=== PATIENT | male | born 1975 | race Caucasian/White ===

== ENCOUNTER 2024-10-18 00:47 | Day surgery (SDC) | payer OTHER, SELFPAY ==
[2024-10-11 10:52] VITALS: BMI 34.4
--- OUTSIDE RECORDS SUMMARY | 2024-10-18 00:51 | XMS_ITS | Clinical Summary ---
Author Organization [facility] Address [address] [place] [address] Care Team Providers Care Continuous Process Coffee Roaster Name Role Phone No, Physician Primary Care Provider [phone] Allergies No known active allergies Medications traMADol (ULTRAM) 50 mg tablet Take by mouth every 6 (six) hours as needed. 0 7 Active sulfamethoxazol e-trimethoprim (BACTRIM,SEPTRA ) 800-160 mg per tablet TAKE 1 TABLET BY MOUTH TWICE A DAY UNTIL FINISHED TAKE WITH LOTS OF FLUIDS 0 7 Active naproxen (NAPROSYN) 500 mg tablet Take 1 tablet (500 mg total) by mouth 2 (two) times a day with meals. 30 tablet 8 Active Additional Information Patient not taking.Reported on 03/29/2020 HYDROcodone-yael taminophen (NORCO) 5-325 mg per tabletIndicatio ns:Pain Take 1 tablet by mouth every 6 (six) hours as needed for pain. 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): The procedure along with risks and benefits were explained to the patient to which she agrees for an excision of epidermoid cyst Surgical History Surgery Date Site/Laterality Comments TONSILLECTOMY Medical History Medical History Date Comments No pertinent past medical history Family History Medical History Relation Name Comments Diabetes Brother Cancer Father Diabetes Father Prostate cancer Father Relation Name Status Comments Brother Alive Father Alive Social History Tobacco Use Types Packs/Day Years Used Date Smoking Tobacco: Never Smokeless Tobacco: Current Alcohol Use Standard Drinks/Week Comments Yes 3 (1 standard drink = 0.6 oz pur e alcohol) occassionally Sex and Gender Information Value Date Recorded Sex Assigned at Not on file Legal Sex Male 4:14 AM STUDENT 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 DEAN Gender Identity Not on file Sexual Orientation Not on file Obstetrics History Last Filed Vital Signs Vital Sign Reading Time Taken Comments Blood Pressure 160/66 04/26/2020 1:39 PM CDT Pulse 82 04/26/2020 1:39 PM CDT Temperature 36.3 C (97.3 F) 04/26/2020 1:39 PM CDT Respiratory Rate 18 04/26/2020 1:39 PM CDT Oxygen Saturation 98% 04/26/2020 1:39 PM CDT Inhaled Oxygen Concentration - - Weight 108.9 kg (240 lb) 03/29/2020 1:55 PM CDT Height 180.3 cm (5' 11 ) 03/29/2020 1:55 PM CDT Body Mass Index 33.47 03/29/2020 1:55 PM CDT Plan of Treatment Not on file Insurance [facility] [place] [address] [employer] Care Teams Continuous Process Coffee Roaster Relationship Specialty Start Date End Date No, Physician PCP - General 06/18/17
--- OUTSIDE RECORDS SUMMARY | 2024-10-18 00:51 | XMS_ITS | Continuity of Care Document ---
Author Organization [facility] Address [address] [place] [address] Phone Care Team Providers Care Gem Cutter Name Role Phone Bhavna Soria Unavailable Unavailable Advance Directives Directive Yes / No Effective Date File Name No Information Encounters Encounter Description Practice Location Reason(s) For Visit Diagnoses Date Provider Providers Copied on [facility]counter [facility] [address], [place], [place], [id number], [place] tel:[phone] [facility] No Information Dec-2 2-200 5 Estella Huggins. [address] [facility] , [address], [place], [address], [place]. tel:[phone] Family History Family Member Type Diagnosis Age At Onset No Information Payers Payer name Insurance type Covered democrat ID Authoriza tion(s) No Information Social History Type Description Quantity Date Captured Comments Sex Female Smoking Status No Information Chief Complaint And Reason For Visit No Information Reason For Referral Reason For Referral No Information History Of Present Illness Encounter Date Complaint History Of Prese nt Illness No Information Functional Status Date Functional Assessmen t No Information Instructions Date Instruction Additional Infor mation No Information Assessments Type Assessment Date No Information Patient Care Teams Name Effective Dates (start - stop) Status Members No Information
--- OUTSIDE RECORDS SUMMARY | 2024-10-18 00:51 | XMS_ITS | Referral Summary ---
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): The procedure along with risks and benefits were explained to the patient to which she agrees for an excision of epidermoid cyst Social History Tobacco Use Types Packs/Day Years Used Date Smoking Tobacco: Never Smokeless Tobacco: Current Alcohol Use Standard Drinks/Week Comments Yes 3 (1 standard drink = 0.6 oz pur e alcohol) occassionally Sex and Gender Information Value Date Recorded Sex Assigned at Not on file Legal Sex Male 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
--- OUTSIDE RECORDS SUMMARY | 2024-10-18 00:51 | XMS_ITS | Clinical Summary ---
Author Organization [facility] Address [address] [place] [address] Phone Care Team Providers Care Scrap Metal Collector Name Role Phone Provider, None Primary Care Provider Unavailabl e Allergies No known active allergies Immunizations Immunization Administration Dates Next Due TDAP Vaccine 08/06/2023 Social History Tobacco Use Types Packs/Day Years Used Date Smoking Tobacco: Never Assessed Sex and Gender Information Value Date Recorded Sex Assigned at Not on file Legal Sex Male 9:12 PM CDT Gender Identity Not on file Sexual Orientation Not on file Last Filed Vital Signs Vital Sign Reading Time Taken Comments Blood Pressure 174/118 08/06/2023 6:30 PM SIDE PULLER Pulse 94 08/06/2023 6:30 PM SIDE PULLER Temperature 36.1 C (97 F) 08/06/2023 5:42 PM SIDE PULLER Respiratory Rate 20 08/06/2023 5:42 PM SIDE PULLER Oxygen Saturation 90% 08/06/2023 6:30 PM SIDE PULLER Inhaled Oxygen Concentration - - Weight 106.6 kg (235 lb) 08/06/2023 5:42 PM SIDE PULLER Height 179.1 cm (5' 10.5 ) 08/06/2023 5:42 PM CS T Body Mass Index 33.24 08/06/2023 5:42 PM SIDE PULLER Plan of Treatment Not on file Insurance [facility] Care Teams Scrap Metal Collector Relationship Specialty Start Date End Date Provider, None [place] PCP - General 08/06/23
[2024-10-18 11:58] VITALS: BP 154/100; PULSE 68; RESP 20; TEMP 36.2; O2SAT 99
[2024-10-18] MEDS: LACTATED RINGERS 1,000 ML 150 ML IV CONT (12:14)
--- NOTE | 2024-10-18 12:20 | P.PNAN_ITS ---
Anes - Initial Pre Proc Eval Procedure: Operation Date: 10/18/24 13:00 Proposed Procedures p Screening Colonoscopy - Roosevelt King MD Date/Time: 10/18/24 12:20 Surgeon: Roosevelt King MD Pre Op Diagnosis: screening colon Patient Data Age: 49 Gender: M Height: 1.78 m Weight: 103.8 kg Last Vital Signs Temp 97.1 F L 10/18/24 11:58 Pulse 68 10/18/24 11:58 Resp 20 10/18/24 11:58 BP 154/100 H 10/18/24 11:58 Pulse Ox 99 10/18/24 11:58 O2 Del Method Room Air 10/18/24 11:58 Allergies Allergy/AdvReac Type Severity Reaction Status Date / Time No Known Allergies Allergy Verified 10/18/24 11:57 Home Medications ?Medication ?Instructions ?Recorded ?Confirmed ?Type mupirocin 2 % topical ointment 1 applic topical BID 10 days #22 06/24/24 10/18/24 Rx grams Patient hx anesthesia problems: none Family hx anesthesia problems: none Results Review: All pre-operative results and documents have been reviewed as part of the pre- operative evaluation. [facility] Past Medical History Medical History Overweight or obesity BMI 34.0-34.9,adult Migraine without aura Palpitations Social History Social History Smoking status: Never smoker Smokeless tobacco user: chewing tobacco Substance use type: does not use Living arrangements: with family Spiritual care concerns: No Anes - Eval Final PreProcedure Day of Procedure 10/18/24 12:20 Patient weight: overweight Heart: regular rate and rhythm Lungs: clear to auscultation Airway: Mallampati scale class II Last oral intake: >/= 8 hours ASA classification: II Emergent: no Anesthetic plan: proceed Anesthesia type and monitoring: general GIVS and standard monitoring Results Review: All pre-operative results and documents have been reviewed as part of the pre- operative evaluation. Informed Consent: The patient's anesthetic plan and its attendant risks and benefits were discussed with the patient/family/POA. Questions were solicited and answers provided to the satisfaction of the patient/family/POA.
[2024-10-18 12:21] VITALS: BP 161/96
--- NOTE | 2024-10-18 12:28 | PM.IMHP ---
H&P: HPI History of Present Illness Date/Time: 10/18/24 12:28 Chief Complaint: Screening colonoscopy Narrative: This is the patient's first colonoscopy. There are no GI symptoms and there is no family history of colorectal cancer. Review of Systems Review of Systems: All systems reviewed & are unremarkable except as noted in HPI and below PMFSH Past Medical History Medical History Overweight or obesity BMI 34.0-34.9,adult Migraine without aura Palpitations Social History Social History Smoking status: Never smoker Smokeless tobacco user: chewing tobacco Substance use type: does not use Living arrangements: with family Spiritual care concerns: No Meds Home Medications and Allergies Home Medications ?Medication ?Instructions ?Recorded ?Confirmed ?Type mupirocin 2 % topical ointment 1 applic topical BID 10 days #22 06/24/24 10/18/24 Rx grams Allergies Allergy/AdvReac Type Severity Reaction Status Date / Time No Known Allergies Allergy Verified 10/18/24 11:57 Vital Signs Vital Signs - 24 hr 10/18/24 11:58 10/18/24 12:21 Temperature 97.1 F L Pulse Rate 68 Respiratory Rate 20 Blood Pressure 154/100 H 161/96 H Pulse Oximetry 99 Oxygen Delivery Room Air Exam Const: General: cooperative and healthy appearing Resp: Effort & Inspection: normal respiratory effort and able to speak in complete sentences Auscultation: clear to auscultation bilaterally Cardio: Rate: regular rate Rhythm: regular rhythm GI: Inspection: normal to inspection GI Palp: No No hepatosplenomegaly present Auscultation: normal bowel sounds Rectal Exam: deferred Skin: General skin exam: normal color Psych: Appearance: grossly normal Mental Status: mental status grossly normal Assessment and Plan Assessment and plan (1) Encounter for screening colonoscopy: Code(s): Z12.11 - Encounter for screening for malignant neoplasm of colon Status: Acute Assessment and Plan: The patient is deemed a good candidate for the procedure. Consent signed. Will proceed.
[2024-10-18 12:48] VITALS: BP 137/94; PULSE 79; RESP 20; O2SAT 97
[2024-10-18 12:58] VITALS: BP 150/101; PULSE 82; RESP 21; O2SAT 99
[2024-10-18 13:02] VITALS: BP 153/108
[2024-10-18 13:08] VITALS: BP 159/101; PULSE 80; RESP 22; O2SAT 100
--- NOTE | 2024-10-18 13:14 | SUR.PHASEII ---
Discussed hypertension with Dr. Osorio. Per Dr. Osorio, adrianaay to discharge patient. Patient educated on the importance of following up with PCP in regards to blood pressures. Patient and family verbalized understanding.
== END 2024-10-18 13:24 | disposition home or self-care (01) ==
PROVIDERS: PCP Nurse Practitioner Family; Referring Provider Nurse Practitioner Family; Visit Provider Internal Medicine Gastroenterology
PROC: 0DJD8ZZ Inspection of Lower Intestinal Tract, Via Natural or Artificial Opening Endoscopic (ICD-10-PCS; CPT 45378; principal; 2024-10-18 13:00)
DX: Z12.11 Encounter for screening for malignant neoplasm of colon (principal); D12.5 Benign neoplasm of sigmoid colon; K62.1 Rectal polyp; K57.30 Diverticulosis of large intestine without perforation or abscess without bleeding; R00.2 Palpitations; F17.220 Nicotine dependence, chewing tobacco, uncomplicated
CPT/HCPCS: 45385; 88305; J2003; J2704; J7120

== ENCOUNTER 2025-07-01 10:22 | Outpatient (CLI) | payer OTHER, SELFPAY ==
--- NOTE | ~2025-07-01 | XR_ITS ---
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 Findings: No acute fracture or malalignment. No significant degenerative changes. Soft tissues unremarkable. Impression: No acute fracture or malalignment. Reviewed, dictated and finalized at location P. CATESSEN GOODS STOCK CLERK Impression: No acute fracture or malalignment.
== END 2025-07-01 10:23 | disposition home or self-care (01) ==
PROVIDERS: PCP Nurse Practitioner Family; Visit Provider Nurse Practitioner Family
DX: M25.521 Pain in right elbow (principal)
CPT/HCPCS: 73070